=== PATIENT | female | born 1985 | race Two or more races ===

== ENCOUNTER 2017-01-21 23:08 | Emergency (ER) | payer SELFPAY ==
[2017-01-21 23:34] LABS: BASOPHILS 0.2 % (0-2); EOSINOPHILS 0.6 % (0-7); HEMATOCRIT 39.8 % (36.0-48.0); IMMATURE GRANULOCYTES 0.2 % (0-5); LYMPHOCYTES 32.9 % (15-50); MCH 31.3 pg (26.0-34.0); MCHC 35.2 g/dL (31.0-37.0); NEUTROPHILS 60.1 % (40-80); PLATELET COUNT 293 10x3/uL (130-400); RBC 4.47 10x6/uL (4.00-5.40); RDW 13.1 % (11.5-14.5); WBC 12.3 10x3/uL (4.8-10.8)
[2017-01-21 23:39] LABS: APPEARANCE CLEAR (CLEAR); BILIRUBIN NEGATIVE (NEGATIVE); COLOR YELLOW (YELLOW); GLUCOSE NEGATIVE (NEGATIVE); KETONE NEGATIVE (NEGATIVE); NITRITE NEGATIVE (NEGATIVE); PROTEIN NEGATIVE (NEGATIVE); SPECIFIC GRAVITY 1.015 (1.005-1.020); UROBILINOGEN NORMAL (NORMAL)
[2017-01-21 23:42] LABS: HCG SERUM POSITIVE (NEGATIVE)
== END 2017-01-21 23:59 | disposition home or self-care (01) ==
LOC: D.ER 23:08
PROVIDERS: Family Medicine
DX: Z32.01 Encounter for pregnancy test, result positive (principal); R10.2 Pelvic and perineal pain